=== PATIENT | male | born 1960 | race Caucasian/White ===

== ENCOUNTER 2022-07-05 07:28 | Inpatient (IN) | payer SELFPAY ==
[2022-07-05] MEDS ORDERED: cefTRIAXone\\ROCEPHIN 2 GM VIAL ONE (08:48)
[2022-07-05 09:32] LABS: ALT (SGPT) 15 U/L (8-55); AST (SGOT) 16 U/L (5-34); Albumin 3.5 g/dL (3.4-4.8); Alkaline Phosphatase 88 U/L (40-110); Anion Gap 19 mmol/L (10-20); BUN (Urea Nitrogen) 7 mg/dL (8.4-25.7); Bilirubin, Total 1.4 mg/dL (0.2-1.2); Calc. Creatinine Clearance 0 mL/min (70-130); Calcium 8.4 mg/dL (7.8-10.44); Carbon Dioxide 22 mmol/L (23-31); Chloride 96 mmol/L (98-107); Estimated GFR 104; Globulin 2.2 g/dL (2.4-3.5); Glucose 246 mg/dL (80-115); Potassium 4.6 mmol/L (3.5-5.1); Protein, Total 5.7 g/dL (5.8-8.1); Sodium 132 mmol/L (136-145)
[2022-07-05 09:41] LABS: Band 10 % (5-11); Eosinophils 2 % (0-10); Hemoglobin 13.7 g/dL (14.0-18.0); Lymphocytes 16 % (21-51); MDiff Complete? YES; Mean Corpuscular HGB CONC 32.7 g/dL (32.0-36.0); Mean Corpuscular Hemoglobin 29.4 pg (27.0-31.0); Mean Platelet Volume 9.6 fL (7.4-10.4); Monocytes 12 % (0-10); Neutrophil 60 % (42-75); Platelet Count 236 10x3/uL (130-400); RBC Distribution Width 13.1 % (11.5-14.5); Red Blood Cell (RBC) Count 4.67 mill/uL (4.70-6.10); White Blood Cell (WBC) Count 6.9 10x3/uL (4.8-10.8)
[2022-07-05 09:51] LABS: SARS-CoV-2 NAA Rapid Test Not Detected (NotDetected)
[2022-07-05] MEDS ORDERED: Azithromycin 500 MG VIAL ONE (10:04)
[2022-07-05] MEDS ORDERED: Ondansetron PF 4 MG/2 ML Vial IVP PRN (12:17)
[2022-07-05] MEDS ORDERED: Dextrose 5% in Water 1,000 ML IV PRN (12:17)
[2022-07-05] MEDS ORDERED: Dextrose 50% Abboject 50 ML SYRINGE SLOW IVP PRN (12:17)
[2022-07-05] MEDS ORDERED: Acetaminophen 325 MG TAB PO PRN (12:17)
[2022-07-05 12:55] VITALS: BMI 34.0
[2022-07-05 13:09] LABS: Legionella Urinary Ag Negative (Negative); Strep pneumo Urine Ag NEGATIVE (NEGATIVE)
[2022-07-05] MEDS ORDERED: guaiFENesin ER 600 MG TAB PO SCH (13:15)
[2022-07-05] MEDS: Benzonatate 100 MG CAP PO SCH ×2 (15:59→20:25)
[2022-07-05] MEDS: Carvedilol 3.125 MG TAB PO SCH (16:07)
[2022-07-05] MEDS: Atorvastatin Calcium 40 MG TAB PO SCH (20:25)
[2022-07-05] MEDS: guaiFENesin ER 600 MG TAB PO SCH (20:25)
[2022-07-05] MEDS: Dextromethorphan Polistirex 30 MG/5 ML (89 ML BOTTLE) PO PRN (21:39)
[2022-07-05] MEDS ORDERED: Metoclopramide HCl 10 MG/2 ML VIAL IVP PRN (21:58)
[2022-07-06] MEDS: HumaLOG 300 UNITS/3 ML VIAL SC PRN ×4 (06:21→20:53)
[2022-07-06 08:04] LABS: Anion Gap 15 mmol/L (10-20); BUN (Urea Nitrogen) 6 mg/dL (8.4-25.7); Calc. Creatinine Clearance 206 mL/min (70-130); Calcium 8.6 mg/dL (7.8-10.44); Carbon Dioxide 26 mmol/L (23-31); Chloride 98 mmol/L (98-107); Estimated GFR 106; Glucose 216 mg/dL (80-115); Potassium 3.9 mmol/L (3.5-5.1); Sodium 135 mmol/L (136-145)
[2022-07-06 08:25] LABS: Hemoglobin 13.5 g/dL (14.0-18.0); Mean Corpuscular HGB CONC 32.4 g/dL (32.0-36.0); Mean Corpuscular Volume 89.5 fl (78.0-98.0); Mean Platelet Volume 7.6 fL (7.4-10.4); Platelet Count 241 10x3/uL (130-400); RBC Distribution Width 12.7 % (11.5-14.5); Red Blood Cell (RBC) Count 4.66 mill/uL (4.70-6.10); White Blood Cell (WBC) Count 6.4 10x3/uL (4.8-10.8)
[2022-07-06] MEDS: cefTRIAXone\\ROCEPHIN 1 GM in Sodium Chloride 0.9% 100 ML IVPB SCH (08:36)
[2022-07-06] MEDS: Aspirin 81 mg Enteric Coated Tablet PO SCH (08:36)
[2022-07-06] MEDS: Carvedilol 3.125 MG TAB PO SCH ×2 (08:36→16:18)
[2022-07-06] MEDS: Benzonatate 100 MG CAP PO SCH ×3 (08:37→20:44)
[2022-07-06] MEDS: guaiFENesin ER 600 MG TAB PO SCH ×2 (08:37→20:44)
[2022-07-06] MEDS: Clopidogrel Bisulfate 75 MG TAB PO SCH (08:37)
[2022-07-06] MEDS: Azithromycin 250 MG TAB PO SCH (08:37)
[2022-07-06 11:24] LABS: Band 20 % (5-11); Eosinophils 3 % (0-10); Lymphocytes 14 % (21-51); MDiff Complete? YES; Monocytes 6 % (0-10); Neutrophil 38 % (42-75); RBC Morphology Normal; Reactive Lymphocytes 18 % (0-10)
[2022-07-06] MEDS: Dextromethorphan Polistirex 30 MG/5 ML (89 ML BOTTLE) PO PRN (18:31)
[2022-07-06] MEDS ORDERED: predniSONE 20 MG TAB PO SCH (19:00)
[2022-07-06] MEDS: Carvedilol 25 MG TAB PO SCH (20:44)
[2022-07-06] MEDS: Atorvastatin Calcium 40 MG TAB PO SCH (20:44)
[2022-07-06] MEDS: Lisinopril 20 MG TAB PO SCH (20:44)
[2022-07-07 05:30] LABS: #Lymphocytes 0.7 thou/uL (1.20-3.40); #Monocytes 0.3 thou/uL (0.11-0.59); #Neutrophils 4.5 thou/uL (1.40-6.50); %Basophils 0.6 % (0.0-1.0); %Eosinophils 0.4 % (0.0-10.0); %Lymphocytes 12.1 % (21.0-51.0); %Monocytes 5.5 % (0.0-10.0); %Neutrophils 81.3 % (42.0-75.0); Mean Corpuscular Hemoglobin 28.9 pg (27.0-31.0); Mean Corpuscular Volume 90.4 fl (78.0-98.0); Mean Platelet Volume 7.6 fL (7.4-10.4); Platelet Count 263 10x3/uL (130-400); RBC Distribution Width 12.7 % (11.5-14.5); Red Blood Cell (RBC) Count 4.84 mill/uL (4.70-6.10); White Blood Cell (WBC) Count 5.6 10x3/uL (4.8-10.8)
[2022-07-07] MEDS: HumaLOG 300 UNITS/3 ML VIAL SC PRN ×4 (05:42→20:36)
[2022-07-07] MEDS: Dextromethorphan Polistirex 30 MG/5 ML (89 ML BOTTLE) PO PRN ×2 (05:43→18:23)
[2022-07-07 05:56] LABS: ALT (SGPT) 20 U/L (8-55); AST (SGOT) 13 U/L (5-34); Albumin 3.3 g/dL (3.4-4.8); Alkaline Phosphatase 94 U/L (40-110); Anion Gap 16 mmol/L (10-20); BUN (Urea Nitrogen) 10 mg/dL (8.4-25.7); Bilirubin, Total 0.7 mg/dL (0.2-1.2); Calc. Creatinine Clearance 183 mL/min (70-130); Carbon Dioxide 25 mmol/L (23-31); Chloride 100 mmol/L (98-107); Estimated GFR 103; Globulin 2.9 g/dL (2.4-3.5); Glucose 326 mg/dL (80-115); Protein, Total 6.2 g/dL (5.8-8.1); Sodium 136 mmol/L (136-145)
[2022-07-07] MEDS: cefTRIAXone\\ROCEPHIN 1 GM in Sodium Chloride 0.9% 100 ML IVPB SCH (07:46)
[2022-07-07] MEDS: metFORMIN 500 MG TAB PO SCH ×2 (07:47→16:02)
[2022-07-07] MEDS: predniSONE 20 MG TAB PO SCH (07:47)
[2022-07-07] MEDS: Amlodipine 5 MG TAB PO SCH (07:47)
[2022-07-07] MEDS: Carvedilol 25 MG TAB PO SCH (07:48)
[2022-07-07] MEDS: Clopidogrel Bisulfate 75 MG TAB PO SCH (07:48)
[2022-07-07] MEDS: Aspirin 81 mg Enteric Coated Tablet PO SCH (07:48)
[2022-07-07] MEDS: Benzonatate 100 MG CAP PO SCH ×3 (07:48→20:36)
[2022-07-07] MEDS: Lisinopril 20 MG TAB PO SCH ×2 (07:49→20:36)
[2022-07-07] MEDS: Azithromycin 250 MG TAB PO SCH (07:49)
[2022-07-07] MEDS: guaiFENesin ER 600 MG TAB PO SCH ×2 (07:49→20:36)
[2022-07-07] MEDS: Pioglitazone HCl 15 MG TAB PO SCH (08:23)
[2022-07-07] MEDS: Atorvastatin Calcium 40 MG TAB PO SCH (20:36)
[2022-07-08] MEDS: HumaLOG 300 UNITS/3 ML VIAL SC PRN ×4 (06:05→20:17)
[2022-07-08] MEDS: Dextromethorphan Polistirex 30 MG/5 ML (89 ML BOTTLE) PO PRN ×2 (06:05→20:21)
[2022-07-08] MEDS: Aspirin 81 mg Enteric Coated Tablet PO SCH (08:07)
[2022-07-08] MEDS: metFORMIN 500 MG TAB PO SCH ×2 (08:07→17:34)
[2022-07-08] MEDS: predniSONE 20 MG TAB PO SCH (08:07)
[2022-07-08] MEDS: Amlodipine 5 MG TAB PO SCH (08:07)
[2022-07-08] MEDS: Clopidogrel Bisulfate 75 MG TAB PO SCH (08:08)
[2022-07-08] MEDS: Lisinopril 20 MG TAB PO SCH ×2 (08:08→20:20)
[2022-07-08] MEDS: Benzonatate 100 MG CAP PO SCH ×3 (08:08→20:20)
[2022-07-08] MEDS: guaiFENesin ER 600 MG TAB PO SCH ×2 (08:08→20:20)
[2022-07-08] MEDS: Azithromycin 250 MG TAB PO SCH (08:08)
[2022-07-08] MEDS: Pioglitazone HCl 15 MG TAB PO SCH (08:08)
[2022-07-08] MEDS: cefTRIAXone\\ROCEPHIN 1 GM in Sodium Chloride 0.9% 100 ML IVPB SCH (08:09)
[2022-07-08] MEDS ORDERED: Albuterol Sulfate 2.5 mg/3 ml Neb ONE ×2 (12:02→12:09)
[2022-07-08] MEDS: Atorvastatin Calcium 40 MG TAB PO SCH (20:19)
[2022-07-09] MEDS: HumaLOG 300 UNITS/3 ML VIAL SC PRN ×2 (05:33→11:12)
[2022-07-09 08:23] VITALS: BP 148/76; TEMP 97.4
[2022-07-09] MEDS: cefTRIAXone\\ROCEPHIN 1 GM in Sodium Chloride 0.9% 100 ML IVPB SCH (09:31)
[2022-07-09] MEDS: Azithromycin 250 MG TAB PO SCH (09:32)
[2022-07-09] MEDS: Clopidogrel Bisulfate 75 MG TAB PO SCH (09:32)
[2022-07-09] MEDS: Pioglitazone HCl 15 MG TAB PO SCH (09:32)
[2022-07-09] MEDS: Aspirin 81 mg Enteric Coated Tablet PO SCH (09:32)
[2022-07-09] MEDS: predniSONE 20 MG TAB PO SCH (09:32)
[2022-07-09] MEDS: guaiFENesin ER 600 MG TAB PO SCH (09:32)
[2022-07-09] MEDS: Benzonatate 100 MG CAP PO SCH (09:32)
[2022-07-09] MEDS: Carvedilol 25 MG TAB PO SCH (09:33)
[2022-07-09] MEDS: Lisinopril 20 MG TAB PO SCH (09:33)
[2022-07-09] MEDS: metFORMIN 500 MG TAB PO SCH (09:33)
[2022-07-09] MEDS: Amlodipine 5 MG TAB PO SCH (09:33)
[2022-07-09] MEDS: Dextromethorphan Polistirex 30 MG/5 ML (89 ML BOTTLE) PO PRN (09:36)
[2022-07-09] MEDS ORDERED: FLU VACC QS2022-23(6MOS UP)/PF 60 MCG/0.5 ML SYRINGE IM ONE (17:00)
== END 2022-07-09 12:45 | disposition home or self-care (01) | DRG 193 ==
LOC: ERS 07:28 → MSONC 11:51 → OBSVTOIN 07-06 16:03
PROVIDERS: ADMIT Family Medicine; ATTEND Family Medicine
DX: J15.9 Unspecified bacterial pneumonia (principal); J96.01 Acute respiratory failure with hypoxia; Z20.822 Contact with and (suspected) exposure to COVID-19; I10 Essential (primary) hypertension; E11.65 Type 2 diabetes mellitus with hyperglycemia; T38.0X5A Adverse effect of glucocorticoids and synthetic analogues, initial encounter; I25.10 Atherosclerotic heart disease of native coronary artery without angina pectoris; E78.5 Hyperlipidemia, unspecified; E11.9 Type 2 diabetes mellitus without complications; R94.31 Abnormal electrocardiogram [ECG] [EKG]; F17.290 Nicotine dependence, other tobacco product, uncomplicated; Z79.899 Other long term (current) drug therapy; Z79.02 Long term (current) use of antithrombotics/antiplatelets; Z79.84 Long term (current) use of oral hypoglycemic drugs; Z79.82 Long term (current) use of aspirin; Z95.1 Presence of aortocoronary bypass graft
CPT/HCPCS: 36415; 36416; 71045; 80048; 80053; 83605; 83880; 84145; 84484; 85025; 87040; 87081; 87449; 87633; 87899; 93005; 94640; 94760; 96374; 96375; J0456; J0696; J1815; J3490; J7512; J7611; J7620